=== PATIENT | female | born 1990 | race American Indian/Alaskan Native ===

== ENCOUNTER 2017-09-11 14:25 | Emergency (ER) | payer SELFPAY ==
[2017-09-11 14:25] VITALS: BMI 50.0
[2017-09-11 14:40] VITALS: BP 119/76; PULSE 59; RESP 18; TEMP 97.7; O2SAT 96
--- NOTE | 2017-09-11 15:47 | C.PDOC ---
History Of Present Illness 26 y/o bariatric female c/o right foot pain for more than a week after accidentally kicking something in her house. pt sts she has been seen in [facility] ( unclear if last week or today just prior to arrival in [facility] ED and had negative foot xray, has post op shoe); pt c/o continuing pain in spite of taking ibupforen 800 mg po bid. pt is weight bearing on foot. pt offered repeat xray and crutches and declines both. Time Seen by Provider: 09/11/17 15:00 Chief Complaint (Nursing): Lower Extremity Problem/Injury Past Medical History Vital Signs: Last Vital Signs Temp 97.7 F 09/11/17 14:40 Pulse 59 L 09/11/17 14:40 Resp 18 09/11/17 16:30 BP 119/76 09/11/17 14:40 Pulse Ox 96 09/11/17 18:13 - Medical History PMH: Anemia, Asthma, Bronchitis Denies: Depression Surgical History: Tonsillectomy - [employer] Procedures INJECT/INFUSE NEC (06/29/12) Family History: States: Unknown Family Hx - Social History Hx Tobacco Use: Yes (1 IN 3 DAYS) Hx Alcohol Use: No Hx Substance Use: Yes (weed) - Immunization History Hx Tetanus Toxoid Vaccination: No Hx Influenza Vaccination: No Hx Pneumococcal Vaccination: No Review Of Systems Musculoskeletal: Positive for: Foot Pain (right) Physical Exam - Physical Exam Appears: Non-toxic, No Acute Distress Extremity: Normal ROM, Tenderness (minimal tenderness to right 5th metatarsal), No Deformity, Swelling (minimal swelling to dorsum of right foot), Other (no ecchymosis noted; skin intact) Pulses: Right Dorsalis Pedis: Normal ED Course And Treatment O2 Sat by Pulse Oximetry: 96 (RA) Pulse Ox Interpretation: Normal Medical Decision Making Medical Decision Making: pt refusing xray of right foot and refusing crutches from PT. Disposition Counseled Patient/Family Regarding: Diagnosis, Need For Followup - Disposition Referrals: Podiatry Clinic [Outside] Disposition: HOME/ ROUTINE Disposition Time: 15:47 Condition: STABLE Additional Instructions: Recommend you keep foot elevated whenever possible and avoid weight bearing for a few days. Cold compresses to right foot for 10 minutes every 2 hours. Continue taking ibuprofen. Follow up in podiatry clinic; call for an appointment. 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 - Scribe Statement The provider has reviewed the documentation as recorded by the Nirmala Cardona Provider Attestation All medical record entries made by the Nirmala were at my direction and personally dictated by me. I have reviewed the chart and agree that the record accurately reflects my personal performance of the history, physical exam, medical decision making, and the department course for this patient. I have also personally directed, reviewed, and agree with the discharge instructions and disposition.
== END 2017-09-11 16:30 | disposition home or self-care (01) ==
LOC: C.ER 14:25
DX: M79.671 Pain in right foot (principal)